=== PATIENT | male | born 1970 | race Caucasian/White ===

== ENCOUNTER → 2016-04-15 | Outpatient (CLI) | payer OTHER ==
[~2016-04-15] MED LIST: AZOR 10/40 M1 TABLET PO; LEVSIN-SL0.125 MG SL
== END | disposition home or self-care (01) ==
LOC: CDC 10:39
DX: Z01.810 Encounter for preprocedural cardiovascular examination (principal); E66.01 Morbid (severe) obesity due to excess calories
CPT/HCPCS: 93000

== ENCOUNTER 2016-07-13 08:48 | Inpatient (IN) | payer OTHER ==
[~2016-07-13] VITALS: Ht 175.3 cm; Wt 125.0 kg
[~2016-07-13 08:48] MED LIST changes: +DAILY MULTIPLE1 EACH PO; +FISH OIL 1,0001 EAC7 PO
[2016-07-13 09:40] VITALS: BP 151/97
[2016-07-13 10:18] LABS: POINT-OF-CARE METER ID UU14174212
[2016-07-13 14:55] VITALS: BP 142/80
[2016-07-13 17:46] LABS: POINT-OF-CARE METER ID UU14162508
[2016-07-13 20:04] VITALS: BP 138/84
[2016-07-14 00:22] VITALS: BP 156/82
[2016-07-14 04:21] VITALS: BP 146/77
[2016-07-14 07:01] LABS: HEMATOCRIT 40.8 % (38.0-50.0); MCH 28.9 PG (29.0-34.0); MCHC 34.8 G/DL (30.0-36.0); MCV 82.9 FL (86-99); MEAN PLAT.VOLUME 9.7 uM^3 (9.0-12.4); PLATELET COUNT 262 K/uL (156-360); RBC DIS.WIDTH-CV 12.6 % (11.8-14.6); RBC DIS.WIDTH-SD 37.9 % (39-53); RED BLOOD COUNT 4.92 M/uL (4.00-5.50)
[2016-07-14 07:25] VITALS: BP 178/94
[2016-07-14 07:25] LABS: ANION GAP 10 MEQ/L (2-14); CHLORIDE 100 MEQ/L (99-109); GFR ESTIMATE (CALCULATED) > 59 mL/min/; GLUCOSE 112 mg/dL (70-99); MAGNESIUM 1.5 mg/dl (1.3-2.7); SAMPLE HEMOLYSIS CHECK 0; SAMPLE ICTERIC CHECK 0; SAMPLE LIPEMIA CHECK 0; SODIUM 137 MEQ/L (136-147); UREA NITROGEN (BUN) 12 mg/dL (9-23)
[2016-07-14] MEDS ORDERED: HYDROCODON-ACE1 EAC7 PO (08:07)
[2016-07-14 08:50] VITALS: BP 174/85
[2016-07-14 12:08] LABS: POINT-OF-CARE METER ID UU14162508
== END 2016-07-14 12:28 | disposition home or self-care (01) | DRG 621 ==
LOC: 2SOUTH 08:48 → 2EAST 14:50 → 2SOUTH 15:20 → 2EAST 07-14 12:28
PROVIDERS: Surgery
PROC: 0DB64Z3 Excision of Stomach, Percutaneous Endoscopic Approach, Vertical (ICD-10-PCS; principal; 2016-07-13)
DX: E66.01 Morbid (severe) obesity due to excess calories (principal); I10 Essential (primary) hypertension; G47.30 Sleep apnea, unspecified; M19.90 Unspecified osteoarthritis, unspecified site; E78.5 Hyperlipidemia, unspecified; Z68.41 Body mass index [BMI] 40.0-44.9, adult
CPT/HCPCS: 80048; 82948; 83735; 84100; 85027; 94660; C9113; J0330; J0360; J1100; J1170; J1580; J1644; J1650; J1815; J2250; J2270; J2405; J2710; J3010; J3480; J7050; J7120; S0020